=== PATIENT | male | born 1955 | race Caucasian/White ===

== ENCOUNTER 2017-10-17 18:07 | Inpatient (IN) | payer OTHER ==
[~2017-10-17] VITALS: Ht 175.3 cm; Wt 64.8 kg
[2017-10-17 20:22] VITALS: BP 102/74
[2017-10-17] MEDS ORDERED: ATOR20TA9 PO (21:26)
[2017-10-17] MEDS ORDERED: DICY10CA3 PO (21:26)
[2017-10-17] MEDS ORDERED: CARV12.5 PO (21:26)
[2017-10-17] MEDS ORDERED: WARF5TAB PO (21:26)
[2017-10-17] MEDS ORDERED: LISI-424 PO (21:26)
[2017-10-17] MEDS ORDERED: THIA100T10 PO (21:26)
[2017-10-17 21:58] VITALS: BP 138/78
[2017-10-17] MEDS ORDERED: BISACODYL 10 MG SUPP PR PRN (22:00)
[2017-10-17] MEDS ORDERED: POLYETHYLENE GLYCOL 17 GM PACKET PO PRN (22:00)
[2017-10-17] MEDS ORDERED: ONDANSETRON 2MG/ML, 2ML IVPush PRN (22:00)
[2017-10-17] MEDS ORDERED: ACETAMINOPHEN 325 MG TABLET PO PRN (22:00)
[2017-10-17 22:02] LABS: BASOPHILS # (AUTO) 0.09 x10^3/uL (0-0.1); BASOPHILS % (AUTO) 1 % (0-1); EOSINOPHILS # (AUTO) 0.18 x10^3/uL (0-0.4); EOSINOPHILS % (AUTO) 2 % (1-7); LYMPHOCYTES # (AUTO) 2.18 x10^3/uL (1-3.4); LYMPHOCYTES % (AUTO) 24 % (22-44); MD NO; MEAN CORPUSCULAR HGB CONC 34.2 g/dL (33.2-36.2); MEAN CORPUSCULAR VOLUME 105.4 fL (81-97); MEAN PLATELET VOLUME 8.8 fL (7.4-10.4); MONOCYTES # (AUTO) 1.02 x10^3/uL (0.2-0.8); MONOCYTES % (AUTO) 11 % (2-9); NEUTROPHILS # (AUTO) 5.63 x10^3/uL (1.8-6.8); NEUTROPHILS % (AUTO) 62 % (42-75); PLATELET COUNT 252 x10^3/uL (130-400); RED BLOOD COUNT 4.22 x10^6/uL (4.38-5.82); RED CELL DISTRIBUTION WIDTH 14.4 % (9.4-14.8)
[2017-10-17 22:14] LABS: ALANINE AMINOTRANSFERASE 136 U/L (12-78); ANION GAP 8 mmol/L (5-15); CALCIUM 8.3 mg/dL (8.5-10.1); CHLORIDE 99 mmol/L (98-107); CREATININE 1.16 mg/dL (0.7-1.3)
[2017-10-17 22:17] LABS: ALKALINE PHOSPHATASE 104 U/L (45-117); BILIRUBIN,TOTAL 0.4 mg/dL (0.2-1.0); TOTAL PROTEIN 7.8 g/dL (6.4-8.2)
[2017-10-17] MEDS: ATORVASTATIN 20 MG TABLET PO SCH (23:06)
[2017-10-17] MEDS: DICYCLOMINE 10 MG CAPSULE PO SCH (23:07)
[2017-10-17] MEDS: LISINOPRIL 5 MG TABLET PO SCH (23:07)
[2017-10-17] MEDS: CARVEDILOL 12.5 MG TABLET PO SCH (23:07)
[2017-10-17] MEDS: SODIUM CHLORIDE FLUSH 10ML SYR IVF SCH (23:07)
[2017-10-18 00:54] VITALS: BP 99/59
[2017-10-18] MEDS: DICYCLOMINE 10 MG CAPSULE PO SCH ×4 (05:39→20:08)
[2017-10-18 05:43] LABS: BASOPHILS # (AUTO) 0.03 x10^3/uL (0-0.1); BASOPHILS % (AUTO) 0 % (0-1); EOSINOPHILS # (AUTO) 0.16 x10^3/uL (0-0.4); EOSINOPHILS % (AUTO) 2 % (1-7); LYMPHOCYTES # (AUTO) 2.18 x10^3/uL (1-3.4); LYMPHOCYTES % (AUTO) 30 % (22-44); MD NO; MEAN CORPUSCULAR HEMOGLOBIN 35.7 pg (27.5-34.5); MEAN CORPUSCULAR HGB CONC 33.9 g/dL (33.2-36.2); MEAN CORPUSCULAR VOLUME 105.4 fL (81-97); MEAN PLATELET VOLUME 8.8 fL (7.4-10.4); MONOCYTES # (AUTO) 0.63 x10^3/uL (0.2-0.8); MONOCYTES % (AUTO) 9 % (2-9); NEUTROPHILS # (AUTO) 4.29 x10^3/uL (1.8-6.8); NEUTROPHILS % (AUTO) 59 % (42-75); PLATELET COUNT 261 x10^3/uL (130-400); RED BLOOD COUNT 4.05 x10^6/uL (4.38-5.82); RED CELL DISTRIBUTION WIDTH 14.5 % (9.4-14.8)
[2017-10-18 05:55] LABS: CHLORIDE 99 mmol/L (98-107)
[2017-10-18 06:04] LABS: ALANINE AMINOTRANSFERASE 124 U/L (12-78); ALBUMIN 3.1 g/dL (3.4-5.0); ALKALINE PHOSPHATASE 86 U/L (45-117); ANION GAP 10 mmol/L (5-15); BILIRUBIN,TOTAL 0.7 mg/dL (0.2-1.0); CALCIUM 8.7 mg/dL (8.5-10.1); CREATININE 1.06 mg/dL (0.7-1.3); TOTAL PROTEIN 7.4 g/dL (6.4-8.2)
[2017-10-18 06:24] LABS: INTERNATIONAL NORMALIZED RATIO 1.66 (0.93-1.1); PROTHROMBIN TIME 16.9 Seconds (9.6-11.5)
[2017-10-18] MEDS: HEPARIN GTT MC SCH ×2 (07:00→08:00)
[2017-10-18] MEDS ORDERED: HEPARIN 25,000 UNITS/500ML PMX 500 ML IV PRN (07:00)
[2017-10-18] MEDS ORDERED: HEPARIN 5,000 UNITS/ML, 1ML IV ONE (08:30)
[2017-10-18] MEDS: SODIUM CHLORIDE FLUSH 10ML SYR IVF SCH ×2 (09:00→20:11)
[2017-10-18] MEDS: SENNA/DOCUSATE TABLET PO SCH (09:00)
[2017-10-18] MEDS: HEPARIN 25,000 UNITS/500ML PMX 500 ML IV PRN (09:09)
[2017-10-18 09:30] VITALS: BP 99/68
[2017-10-18] MEDS: CARVEDILOL 12.5 MG TABLET PO SCH ×2 (09:50→20:09)
[2017-10-18] MEDS: LISINOPRIL 5 MG TABLET PO SCH ×2 (09:50→20:09)
[2017-10-18] MEDS: THIAMINE 100MG TABLET PO SCH (09:50)
[2017-10-18 16:35] VITALS: BP 94/63
[2017-10-18] MEDS: HEPARIN 5,000 UNITS/ML, 1ML IV PRN ×2 (16:56→23:46)
[2017-10-18] MEDS ORDERED: WARFARIN 5 MG TABLET PO-COUM SCH (18:00)
[2017-10-18] MEDS ORDERED: WARFARIN 7.5 MG TABLET PO-COUM ONE (18:00)
[2017-10-18 19:16] VITALS: BP 104/71
[2017-10-18 20:05] VITALS: BP 130/72
[2017-10-18] MEDS: ATORVASTATIN 20 MG TABLET PO SCH (20:09)
[2017-10-19 01:26] VITALS: BP 87/53
[2017-10-19 05:52] LABS: BASOPHILS # (AUTO) 0.05 x10^3/uL (0-0.1); BASOPHILS % (AUTO) 1 % (0-1); EOSINOPHILS # (AUTO) 0.16 x10^3/uL (0-0.4); EOSINOPHILS % (AUTO) 2 % (1-7); LYMPHOCYTES # (AUTO) 2.44 x10^3/uL (1-3.4); LYMPHOCYTES % (AUTO) 31 % (22-44); MD NO; MEAN CORPUSCULAR HEMOGLOBIN 36.1 pg (27.5-34.5); MEAN CORPUSCULAR HGB CONC 34.4 g/dL (33.2-36.2); MEAN PLATELET VOLUME 8.4 fL (7.4-10.4); MONOCYTES # (AUTO) 1.03 x10^3/uL (0.2-0.8); MONOCYTES % (AUTO) 13 % (2-9); NEUTROPHILS # (AUTO) 4.12 x10^3/uL (1.8-6.8); NEUTROPHILS % (AUTO) 53 % (42-75); PLATELET COUNT 288 x10^3/uL (130-400); RED BLOOD COUNT 3.87 x10^6/uL (4.38-5.82); RED CELL DISTRIBUTION WIDTH 13.9 % (9.4-14.8)
[2017-10-19] MEDS: DICYCLOMINE 10 MG CAPSULE PO SCH ×4 (05:56→20:41)
[2017-10-19 05:59] LABS: ALBUMIN 2.9 g/dL (3.4-5.0); ANION GAP 5 mmol/L (5-15); CALCIUM 8.7 mg/dL (8.5-10.1); CHLORIDE 100 mmol/L (98-107); CREATININE 0.94 mg/dL (0.7-1.3)
[2017-10-19] MEDS: HEPARIN 5,000 UNITS/ML, 1ML IV PRN ×3 (06:38→20:42)
[2017-10-19 07:33] VITALS: BP 90/58
[2017-10-19 08:00] LABS: INTERNATIONAL NORMALIZED RATIO 1.64 (0.93-1.1); PROTHROMBIN TIME 16.7 Seconds (9.6-11.5)
[2017-10-19] MEDS: SENNA/DOCUSATE TABLET PO SCH (09:00)
[2017-10-19] MEDS: FUROSEMIDE 20 MG/2 ML IV SCH (09:15)
[2017-10-19] MEDS: SPIRONOLACTONE 25 MG TABLET PO SCH (09:16)
[2017-10-19] MEDS: SODIUM CHLORIDE FLUSH 10ML SYR IVF SCH ×2 (09:16→20:40)
[2017-10-19] MEDS: THIAMINE 100MG TABLET PO SCH (09:17)
[2017-10-19] MEDS: CARVEDILOL 12.5 MG TABLET PO SCH ×2 (09:17→20:41)
[2017-10-19] MEDS: LISINOPRIL 5 MG TABLET PO SCH ×2 (09:17→20:41)
[2017-10-19] MEDS: HEPARIN 25,000 UNITS/500ML PMX 500 ML IV PRN (11:07)
[2017-10-19 13:20] VITALS: BP 101/61
[2017-10-19] MEDS ORDERED: WARFARIN 7.5 MG TABLET PO-COUM ONE (18:00)
[2017-10-19 19:12] VITALS: BP 102/66
[2017-10-19] MEDS: ATORVASTATIN 20 MG TABLET PO SCH (20:41)
[2017-10-20 03:10] VITALS: BP 99/67
[2017-10-20 03:21] LABS: BASOPHILS # (AUTO) 0.05 x10^3/uL (0-0.1); BASOPHILS % (AUTO) 1 % (0-1); EOSINOPHILS # (AUTO) 0.14 x10^3/uL (0-0.4); EOSINOPHILS % (AUTO) 2 % (1-7); LYMPHOCYTES # (AUTO) 2.86 x10^3/uL (1-3.4); LYMPHOCYTES % (AUTO) 42 % (22-44); MD NO; MEAN CORPUSCULAR HEMOGLOBIN 36.2 pg (27.5-34.5); MEAN CORPUSCULAR HGB CONC 34.6 g/dL (33.2-36.2); MEAN CORPUSCULAR VOLUME 104.4 fL (81-97); MEAN PLATELET VOLUME 8.4 fL (7.4-10.4); MONOCYTES # (AUTO) 0.85 x10^3/uL (0.2-0.8); MONOCYTES % (AUTO) 13 % (2-9); NEUTROPHILS # (AUTO) 2.87 x10^3/uL (1.8-6.8); NEUTROPHILS % (AUTO) 42 % (42-75); PLATELET COUNT 321 x10^3/uL (130-400); RED CELL DISTRIBUTION WIDTH 14.2 % (9.4-14.8)
[2017-10-20 03:27] LABS: ANION GAP 7 mmol/L (5-15); CALCIUM 8.6 mg/dL (8.5-10.1); CHLORIDE 102 mmol/L (98-107); CREATININE 0.77 mg/dL (0.7-1.3)
[2017-10-20 03:34] LABS: INTERNATIONAL NORMALIZED RATIO 1.67 (0.93-1.1)
[2017-10-20] MEDS: DICYCLOMINE 10 MG CAPSULE PO SCH ×4 (05:22→21:24)
[2017-10-20] MEDS: HEPARIN 25,000 UNITS/500ML PMX 500 ML IV PRN (07:07)
[2017-10-20] MEDS: SENNA/DOCUSATE TABLET PO SCH (07:47)
[2017-10-20] MEDS: LISINOPRIL 5 MG TABLET PO SCH ×2 (07:47→21:28)
[2017-10-20] MEDS: FUROSEMIDE 20 MG/2 ML IV SCH (07:48)
[2017-10-20] MEDS: THIAMINE 100MG TABLET PO SCH (07:49)
[2017-10-20] MEDS: CARVEDILOL 12.5 MG TABLET PO SCH ×2 (07:49→21:28)
[2017-10-20] MEDS: SPIRONOLACTONE 25 MG TABLET PO SCH (07:49)
[2017-10-20] MEDS: SODIUM CHLORIDE FLUSH 10ML SYR IVF SCH ×2 (07:49→21:24)
[2017-10-20 07:50] VITALS: BP 101/67
[2017-10-20] MEDS: HEPARIN 5,000 UNITS/ML, 1ML IV PRN ×2 (11:27→19:17)
[2017-10-20 14:30] VITALS: BP 109/68
[2017-10-20] MEDS ORDERED: WARFARIN 10 MG TABLET PO-COUM SCH (18:00)
[2017-10-20 19:59] VITALS: BP 97/61
[2017-10-20 21:24] VITALS: BP 104/70
[2017-10-20] MEDS: ATORVASTATIN 20 MG TABLET PO SCH (21:24)
[2017-10-21] MEDS: HEPARIN 25,000 UNITS/500ML PMX 500 ML IV PRN ×3 (01:34→17:40)
[2017-10-21 01:52] LABS: BASOPHILS # (AUTO) 0.11 x10^3/uL (0-0.1); BASOPHILS % (AUTO) 1 % (0-1); EOSINOPHILS # (AUTO) 0.16 x10^3/uL (0-0.4); EOSINOPHILS % (AUTO) 2 % (1-7); LYMPHOCYTES # (AUTO) 3.27 x10^3/uL (1-3.4); LYMPHOCYTES % (AUTO) 42 % (22-44); MD NO; MEAN CORPUSCULAR HEMOGLOBIN 36.2 pg (27.5-34.5); MEAN CORPUSCULAR HGB CONC 34.7 g/dL (33.2-36.2); MEAN CORPUSCULAR VOLUME 104.4 fL (81-97); MEAN PLATELET VOLUME 8.6 fL (7.4-10.4); MONOCYTES # (AUTO) 1.16 x10^3/uL (0.2-0.8); MONOCYTES % (AUTO) 15 % (2-9); NEUTROPHILS # (AUTO) 3.18 x10^3/uL (1.8-6.8); NEUTROPHILS % (AUTO) 40 % (42-75); PLATELET COUNT 318 x10^3/uL (130-400); RED BLOOD COUNT 3.85 x10^6/uL (4.38-5.82); RED CELL DISTRIBUTION WIDTH 14.1 % (9.4-14.8)
[2017-10-21 01:56] LABS: ALBUMIN 2.9 g/dL (3.4-5.0); ANION GAP 6 mmol/L (5-15); CALCIUM 8.6 mg/dL (8.5-10.1); CHLORIDE 102 mmol/L (98-107)
[2017-10-21 02:27] VITALS: BP_SYST 80; BP_DIAS 52; BP_DIAS 57
[2017-10-21 02:32] LABS: INTERNATIONAL NORMALIZED RATIO 1.81 (0.93-1.1); PROTHROMBIN TIME 18.4 Seconds (9.6-11.5)
[2017-10-21] MEDS: HEPARIN 5,000 UNITS/ML, 1ML IV PRN ×2 (03:13→18:45)
[2017-10-21] MEDS: DICYCLOMINE 10 MG CAPSULE PO SCH ×4 (06:24→21:14)
[2017-10-21 07:49] VITALS: BP 92/57
[2017-10-21 08:22] LABS: BILIRUBIN, DIRECT 0.2 mg/dL (0.1-0.2)
[2017-10-21 08:26] LABS: BILIRUBIN,INDIRECT 0.2 mg/dL (0.0-2.0); BILIRUBIN,TOTAL 0.4 mg/dL (0.2-1.0); TOTAL PROTEIN 7.2 g/dL (6.4-8.2)
[2017-10-21] MEDS: SENNA/DOCUSATE TABLET PO SCH (09:00)
[2017-10-21] MEDS: FUROSEMIDE 20 MG/2 ML IV SCH (10:03)
[2017-10-21] MEDS: THIAMINE 100MG TABLET PO SCH (10:04)
[2017-10-21] MEDS: LISINOPRIL 5 MG TABLET PO SCH ×2 (10:04→21:13)
[2017-10-21] MEDS: SPIRONOLACTONE 25 MG TABLET PO SCH (10:04)
[2017-10-21] MEDS: CARVEDILOL 12.5 MG TABLET PO SCH ×2 (10:05→21:12)
[2017-10-21 10:08] VITALS: BP 101/67
[2017-10-21] MEDS: SODIUM CHLORIDE FLUSH 10ML SYR IVF SCH ×2 (10:12→21:12)
[2017-10-21 14:59] VITALS: BP 93/65
[2017-10-21] MEDS ORDERED: WARFARIN 7.5 MG TABLET PO-COUM ONE (18:00)
[2017-10-21 18:48] VITALS: BP 105/75
[2017-10-21 21:10] VITALS: BP 101/68
[2017-10-21] MEDS: ATORVASTATIN 20 MG TABLET PO SCH (21:12)
[2017-10-22 00:50] VITALS: BP 94/62
[2017-10-22 01:18] LABS: BASOPHILS # (AUTO) 0.22 x10^3/uL (0-0.1); BASOPHILS % (AUTO) 3 % (0-1); EOSINOPHILS # (AUTO) 0.12 x10^3/uL (0-0.4); EOSINOPHILS % (AUTO) 2 % (1-7); LYMPHOCYTES # (AUTO) 3.18 x10^3/uL (1-3.4); LYMPHOCYTES % (AUTO) 41 % (22-44); MD NO; MEAN CORPUSCULAR HEMOGLOBIN 35.6 pg (27.5-34.5); MEAN CORPUSCULAR VOLUME 104.9 fL (81-97); MEAN PLATELET VOLUME 9.2 fL (7.4-10.4); MONOCYTES # (AUTO) 1.02 x10^3/uL (0.2-0.8); MONOCYTES % (AUTO) 13 % (2-9); NEUTROPHILS # (AUTO) 3.22 x10^3/uL (1.8-6.8); NEUTROPHILS % (AUTO) 42 % (42-75); PLATELET COUNT 312 x10^3/uL (130-400); RED BLOOD COUNT 3.87 x10^6/uL (4.38-5.82); RED CELL DISTRIBUTION WIDTH 14.1 % (9.4-14.8)
[2017-10-22 01:23] LABS: INTERNATIONAL NORMALIZED RATIO 2.29 (0.93-1.1); PROTHROMBIN TIME 23.4 Seconds (9.6-11.5)
[2017-10-22 01:30] LABS: ALBUMIN 3.1 g/dL (3.4-5.0); ANION GAP 6 mmol/L (5-15); CALCIUM 8.8 mg/dL (8.5-10.1); CHLORIDE 102 mmol/L (98-107); CREATININE 0.87 mg/dL (0.7-1.3)
[2017-10-22] MEDS: DICYCLOMINE 10 MG CAPSULE PO SCH ×4 (06:21→21:38)
[2017-10-22 07:20] VITALS: BP 109/69
[2017-10-22 07:37] LABS: INTERNATIONAL NORMALIZED RATIO 2.24 (0.93-1.1); PROTHROMBIN TIME 22.9 Seconds (9.6-11.5)
[2017-10-22] MEDS: FUROSEMIDE 20 MG/2 ML IV SCH (08:53)
[2017-10-22] MEDS: LISINOPRIL 5 MG TABLET PO SCH ×2 (08:54→21:38)
[2017-10-22] MEDS: SODIUM CHLORIDE FLUSH 10ML SYR IVF SCH ×2 (08:54→21:38)
[2017-10-22] MEDS: THIAMINE 100MG TABLET PO SCH (08:54)
[2017-10-22] MEDS: SENNA/DOCUSATE TABLET PO SCH (08:54)
[2017-10-22] MEDS: CARVEDILOL 12.5 MG TABLET PO SCH ×2 (08:54→21:38)
[2017-10-22] MEDS: SPIRONOLACTONE 25 MG TABLET PO SCH (08:54)
[2017-10-22] MEDS ORDERED: SPIR25TA PO (12:53)
[2017-10-22] MEDS ORDERED: FURO40TA6 PO (12:53)
[2017-10-22 14:05] VITALS: BP 94/61
[2017-10-22] MEDS ORDERED: WARFARIN 5 MG TABLET PO-COUM ONE (18:00)
[2017-10-22 19:58] VITALS: BP 99/66
[2017-10-22 21:32] VITALS: BP 101/71
[2017-10-22] MEDS: ATORVASTATIN 20 MG TABLET PO SCH (21:38)
[2017-10-22] MEDS: HEPARIN 25,000 UNITS/500ML PMX 500 ML IV PRN (22:47)
[2017-10-23 01:07] VITALS: BP 107/71
[2017-10-23 06:02] LABS: INTERNATIONAL NORMALIZED RATIO 2.34 (0.93-1.1); PROTHROMBIN TIME 23.9 Seconds (9.6-11.5)
[2017-10-23] MEDS: DICYCLOMINE 10 MG CAPSULE PO SCH (06:28)
[2017-10-23 07:20] VITALS: BP 109/73
[2017-10-23] MEDS: THIAMINE 100MG TABLET PO SCH (08:26)
[2017-10-23] MEDS: SPIRONOLACTONE 25 MG TABLET PO SCH (08:26)
[2017-10-23] MEDS: SODIUM CHLORIDE FLUSH 10ML SYR IVF SCH (08:26)
[2017-10-23] MEDS: FUROSEMIDE 20 MG/2 ML IV SCH (08:26)
[2017-10-23] MEDS: SENNA/DOCUSATE TABLET PO SCH (08:27)
[2017-10-23] MEDS: CARVEDILOL 12.5 MG TABLET PO SCH (08:27)
[2017-10-23] MEDS: LISINOPRIL 5 MG TABLET PO SCH (08:27)
[2017-10-23] MEDS ORDERED: WARFARIN 5 MG TABLET PO-COUM ONE (18:00)
== END 2017-10-23 10:15 | disposition home or self-care (01) | DRG 64 ==
LOC: 5SO 20:15 → DCLOUNGE 10-23 09:46
PROVIDERS: ADMIT Hospitalist; ATTEND Hospitalist
DX: I63.9 Cerebral infarction, unspecified (principal); I50.23 Acute on chronic systolic (congestive) heart failure; I42.9 Cardiomyopathy, unspecified; D68.69 Other thrombophilia; F10.188 Alcohol abuse with other alcohol-induced disorder; E44.0 Moderate protein-calorie malnutrition; K55.9 Vascular disorder of intestine, unspecified; N28.0 Ischemia and infarction of kidney; F17.210 Nicotine dependence, cigarettes, uncomplicated; Y90.0 Blood alcohol level of less than 20 mg/100 ml; D75.89 Other specified diseases of blood and blood-forming organs; I51.3 Intracardiac thrombosis, not elsewhere classified; I48.91 Unspecified atrial fibrillation; Z79.01 Long term (current) use of anticoagulants; Z82.49 Family history of ischemic heart disease and other diseases of the circulatory system; Z79.899 Other long term (current) drug therapy; Z86.73 Personal history of transient ischemic attack (TIA), and cerebral infarction without residual deficits; Z68.21 Body mass index [BMI] 21.0-21.9, adult
CPT/HCPCS: 36415; 80048; 80053; 80076; 82040; 83735; 84100; 85025; 85520; 85610; J1644; J1940

== ENCOUNTER 2017-12-01 14:02 | Emergency (ER) | payer OTHER ==
[~2017-12-01] VITALS: Ht 175.3 cm; Wt 76.2 kg
[~2017-12-01 14:02] MED LIST: ATOR20TA9 PO; CARV12.5 PO; DICY10CA3 PO; FURO40TA6 PO; LISI-424 PO; SPIR25TA PO; THIA100T10 PO; WARF5TAB PO
[2017-12-01 14:30] LABS: BASOPHILS # (AUTO) 0.09 x10^3/uL (0-0.1); BASOPHILS % (AUTO) 1 % (0-1); EOSINOPHILS # (AUTO) 0.03 x10^3/uL (0-0.4); EOSINOPHILS % (AUTO) 1 % (1-7); LYMPHOCYTES # (AUTO) 1.43 x10^3/uL (1-3.4); LYMPHOCYTES % (AUTO) 22 % (22-44); MD NO; MEAN CORPUSCULAR HEMOGLOBIN 35.8 pg (27.5-34.5); MEAN CORPUSCULAR HGB CONC 33.4 g/dL (33.2-36.2); MEAN PLATELET VOLUME 7.7 fL (7.4-10.4); MONOCYTES # (AUTO) 0.72 x10^3/uL (0.2-0.8); MONOCYTES % (AUTO) 11 % (2-9); NEUTROPHILS # (AUTO) 4.21 x10^3/uL (1.8-6.8); NEUTROPHILS % (AUTO) 65 % (42-75); PLATELET COUNT 230 x10^3/uL (130-400); RED BLOOD COUNT 3.61 x10^6/uL (4.38-5.82); RED CELL DISTRIBUTION WIDTH 16.9 % (9.4-14.8)
[2017-12-01 14:36] LABS: ALBUMIN 2.9 g/dL (3.4-5.0); ANION GAP 9 mmol/L (5-15); CALCIUM 8.1 mg/dL (8.5-10.1); CHLORIDE 108 mmol/L (98-107); CREATININE 1.04 mg/dL (0.7-1.3)
[2017-12-01 14:40] LABS: TROPONIN I 0.036 ng/mL (0.000-0.045)
[2017-12-01] MEDS ORDERED: FUROSEMIDE 20 MG TABLET ONE (15:22)
[2017-12-01 15:27] VITALS: BP 104/83
[2017-12-01] MEDS ORDERED: FUROSEMIDE 20 MG TABLET PO ONE (15:30)
== END 2017-12-01 16:01 | disposition home or self-care (01) ==
LOC: ED 15:55
DX: R60.0 Localized edema (principal); I50.9 Heart failure, unspecified; F17.200 Nicotine dependence, unspecified, uncomplicated
CPT/HCPCS: 36415; 71045; 80048; 82040; 83880; 84484; 85025; 93005; 99285

== ENCOUNTER 2017-12-16 16:03 | Emergency (ER) | payer OTHER ==
[~2017-12-16] VITALS: Ht 175.3 cm; Wt 74.8 kg
[2017-12-16 17:30] LABS: BASOPHILS # (AUTO) 0.03 x10^3/uL (0-0.1); BASOPHILS % (AUTO) 0 % (0-1); EOSINOPHILS # (AUTO) 0.01 x10^3/uL (0-0.4); EOSINOPHILS % (AUTO) 0 % (1-7); LYMPHOCYTES # (AUTO) 1.49 x10^3/uL (1-3.4); LYMPHOCYTES % (AUTO) 17 % (22-44); MD NO; MEAN CORPUSCULAR HEMOGLOBIN 36.5 pg (27.5-34.5); MEAN CORPUSCULAR HGB CONC 33.9 g/dL (33.2-36.2); MEAN CORPUSCULAR VOLUME 107.5 fL (81-97); MEAN PLATELET VOLUME 8.1 fL (7.4-10.4); MONOCYTES # (AUTO) 0.78 x10^3/uL (0.2-0.8); MONOCYTES % (AUTO) 9 % (2-9); NEUTROPHILS # (AUTO) 6.23 x10^3/uL (1.8-6.8); NEUTROPHILS % (AUTO) 73 % (42-75); PLATELET COUNT 218 x10^3/uL (130-400); RED BLOOD COUNT 3.87 x10^6/uL (4.38-5.82); RED CELL DISTRIBUTION WIDTH 16.5 % (9.4-14.8)
[2017-12-16 17:51] LABS: INTERNATIONAL NORMALIZED RATIO 1.41 (0.93-1.1); PROTHROMBIN TIME 14.4 Seconds (9.6-11.5)
[2017-12-16 17:56] LABS: ALBUMIN 3.3 g/dL (3.4-5.0); ANION GAP 11 mmol/L (5-15); CALCIUM 8.9 mg/dL (8.5-10.1); CHLORIDE 101 mmol/L (98-107); CREATININE 1.36 mg/dL (0.7-1.3)
[2017-12-16 18:00] LABS: TROPONIN I 0.047 ng/mL (0.000-0.045)
[2017-12-16 18:21] LABS: ALBUMIN 3.3 g/dL (3.4-5.0); BILIRUBIN, DIRECT 0.9 mg/dL (0.1-0.2)
[2017-12-16 18:23] LABS: BILIRUBIN,INDIRECT 2.2 mg/dL (0.0-2.0); BILIRUBIN,TOTAL 3.1 mg/dL (0.2-1.0); TOTAL PROTEIN 6.8 g/dL (6.4-8.2)
[2017-12-16 19:03] LABS: TROPONIN I 0.037 ng/mL (0.000-0.045)
[2017-12-16 19:37] VITALS: BP 104/72
== END 2017-12-16 19:39 | disposition home or self-care (01) ==
LOC: ED 19:33
DX: R60.0 Localized edema (principal); I50.20 Unspecified systolic (congestive) heart failure; F17.200 Nicotine dependence, unspecified, uncomplicated
CPT/HCPCS: 36415; 71045; 80048; 80076; 82040; 84484; 85025; 85610; 85730; 93005; 99285